=== PATIENT | female | born 1965 | race Caucasian/White ===

== ENCOUNTER → 2017-03-30 | Outpatient (CLI) | payer BC | LOC: KOH-I 14:31 | DX: R05 Cough (principal); S22.41XA Multiple fractures of ribs, right side, initial encounter for closed fracture; J98.11 Atelectasis; W19.XXXA Unspecified fall, initial encounter | CPT/HCPCS: 71020; 71100 ==

== ENCOUNTER → 2021-01-24 | Outpatient (CLI) | payer BC | LOC: KOH-I 12:04 | DX: M54.2 Cervicalgia (principal); M47.812 Spondylosis without myelopathy or radiculopathy, cervical region | CPT/HCPCS: 72050 ==

== ENCOUNTER → 2021-03-28 | Outpatient (CLI) | payer BC | LOC: KOH-I 15:03 | DX: M25.561 Pain in right knee (principal); M25.562 Pain in left knee | CPT/HCPCS: 73562 ==